=== PATIENT | male | born 1935 | race Caucasian/White ===

== ENCOUNTER → 2016-11-16 | Outpatient (CLI) | payer OTHER | END | disposition home or self-care (01) | LOC: CFH 06:44 | PROVIDERS: ATTEND Internal Medicine Cardiovascular Disease | DX: I25.10 Atherosclerotic heart disease of native coronary artery without angina pectoris (principal) | CPT/HCPCS: 78452; 93017; 93306; A9502 ==

== ENCOUNTER → 2016-11-23 | Outpatient (CLI) | payer OTHER | END | disposition home or self-care (01) | LOC: CVU 06:47 | PROVIDERS: ATTEND Internal Medicine Cardiovascular Disease | DX: I65.23 Occlusion and stenosis of bilateral carotid arteries (principal); I10 Essential (primary) hypertension; Z95.1 Presence of aortocoronary bypass graft; Z98.890 Other specified postprocedural states | CPT/HCPCS: 93880 ==

== ENCOUNTER → 2018-09-06 | Outpatient (CLI) | payer MEDICARE | END | disposition home or self-care (01) | LOC: CVU 09:43 | PROVIDERS: ATTEND Physician Assistant | DX: I08.0 Rheumatic disorders of both mitral and aortic valves (principal); I65.22 Occlusion and stenosis of left carotid artery; I10 Essential (primary) hypertension; E78.5 Hyperlipidemia, unspecified; E11.9 Type 2 diabetes mellitus without complications; Z95.1 Presence of aortocoronary bypass graft | CPT/HCPCS: 93306; 93880 ==

== ENCOUNTER 2018-10-24 15:14 | Emergency (ER) | payer MEDICARE ==
[~2018-10-24] VITALS: Ht 172.7 cm; Wt 79.1 kg
[2018-10-24 15:28] VITALS: BP 130/67
[2018-10-24] MEDS ORDERED: LIDOCAINE-MPF 1%, 5ML ONE (15:54)
[2018-10-24] MEDS ORDERED: BUPIVACAINE 0.25% ONE (15:54)
[2018-10-24] MEDS ORDERED: LIDOCAINE-MPF 1%, 5ML INFIL ONE (16:00)
[2018-10-24] MEDS ORDERED: BUPIVACAINE/PF-EPI 0.25% 1:200K SQ ONE (16:00)
--- NOTE | 2018-10-24 16:25 | NUR ---
MICHELL PENG AT BEDSIDE TO EXPLAIN RESULTS AND POC TO PT.
[2018-10-24] MEDS ORDERED: CEFAZOLIN 1,000 MG IM ONE (17:00)
--- NOTE | 2018-10-24 17:02 | NUR ---
MICHELL PENG AT BEDSIDE FOR SUTURE.
[2018-10-24] MEDS ORDERED: DIPH,PERTUSS(ACELL),TET VAC/PF 0.5 ML IM-VACC ONE ×2 (17:30→17:34)
[2018-10-24] MEDS ORDERED: CEFAZOLIN 1,000 MG ONE (17:33)
[2018-10-24] MEDS ORDERED: BACITRACIN ZINC OINT 500U/GM, 0.9 GM ONE (17:35)
--- NOTE | 2018-10-24 18:09 | NUR ---
wound care completed by this RN. edt at bedside for splint placement.
== END 2018-10-24 18:19 | disposition home or self-care (01) ==
LOC: ED 17:47
DX: S62.665B Nondisplaced fracture of distal phalanx of left ring finger, initial encounter for open fracture (principal); S62.667B Nondisplaced fracture of distal phalanx of left little finger, initial encounter for open fracture; X58.XXXA Exposure to other specified factors, initial encounter; Y93.89 Activity, other specified; Y92.89 Other specified places as the place of occurrence of the external cause; Y99.8 Other external cause status
CPT/HCPCS: 13132; 73130; 90471; 90715; 96372; 99285; J0690; 13131